=== PATIENT | male | born 1975 | race Caucasian/White ===

== ENCOUNTER 2017-04-10 05:01 | Inpatient (IN) ==
[2017-04-08 15:21] LABS: Basophils # (Auto) 0.1 K/mcL (0.0-0.3); Basophils % (Auto) 1.4 % (0.0-2.0); Eosinophils # (Auto) 0.2 K/mcL (0.0-0.7); Eosinophils % (Auto) 2.2 % (0.0-7.0); Granulocytes % (Auto) 58.4 % (38.0-78.0); Lymphocytes # (Auto) 3.1 K/mcL (1.5-4.8); Lymphocytes % (Auto) 31.7 % (15.5-49.0); Mean Cell Volume 85.9 fL (80.0-100.0); Mean Corpuscular HGB Conc 33.5 g/dL (31.0-36.0); Mean Corpuscular Hemoglobin 28.8 pg (26.0-34.0); Monocytes # (Auto) 0.6 K/mcL (0.1-0.9); Monocytes % (Auto) 6.3 % (1.0-12.0); Platelet Count 510 K/mcL (140-440); RBC 4.96 M/mcL (4.50-5.90); Red Cell Distribution Width 12.6 % (11.5-14.5)
[2017-04-08 15:34] LABS: Blood Urea Nitrogen 13 mg/dl (6-20)
[2017-04-08 15:43] LABS: Appearance,Urine CLEAR; Bilirubin,Urine NEG (NEG); Color,Urine STRAW; Glucose,Urine (UA) NEGATIVE (NEG); Leukocyte Esterase,Urine NEG /uL (NEG); Nitrate,Urine NEG (NEG); Protein,Urine NEG (NEG); Specific Gravity,Urine 1.006 (1.000-1.035); Urine Blood NEG mg/dL (<0.03); Urobilinogen,Urine NEG (NEG)
[~2017-04-10 05:01] MED LIST: CELECOXIB 200 MG CAPSULE PO SCH; PREGABALIN 75 MG CAPSULE PO SCH; ceFAZolin 1 GM VIAL IV SCH; oxyCODONE 10 MG TAB.ER.12H PO SCH
[2017-04-10] MEDS ORDERED: LIDOCAINE HCL/PF 100 MG/5 ML SYRINGE IV ONE (07:40)
[2017-04-10] MEDS ORDERED: fentaNYL 100 MCG/2 ML VIAL IV ONE (07:40)
[2017-04-10] MEDS ORDERED: GLYCOPYRROLATE 0.2 MG/ML VIAL IV ONE (07:40)
[2017-04-10] MEDS ORDERED: MIDAZOLAM 5 MG/5 ML VIAL IV ONE (07:40)
[2017-04-10] MEDS ORDERED: KETAMINE 100 MG/ML ML IV ONE (07:40)
[2017-04-10] MEDS ORDERED: PROPOFOL 200 MG/20 ML VIAL IV ONE (07:40)
[2017-04-10] MEDS ORDERED: ONDANSETRON 4 MG/2 ML VIAL IV ONE (07:40)
[2017-04-10] MEDS ORDERED: TRANEXAMIC ACID 1,000 MG/10 ML VIAL IV ONE ×2 (07:40→09:15)
[2017-04-10] MEDS ORDERED: HEPARIN 10,000 UNIT/ML VIAL IR ONE (08:25)
[2017-04-10] MEDS ORDERED: HEPARIN 20,000 UNIT/ML VIAL IR ONE (08:25)
[2017-04-10] MEDS ORDERED: KETOROLAC 30 MG/ML VIAL IV PRN (09:03)
[2017-04-10] MEDS ORDERED: BENZOCAINE/MENTHOL 1 LOZENGE PO PRN ×2 (09:03→09:15)
[2017-04-10] MEDS ORDERED: MEPERIDINE 25 MG/ML SYRINGE IV PRN (09:03)
[2017-04-10] MEDS ORDERED: IPRATROPIUM/ALBUTEROL 3 ML AMPUL.NEB NEB PRN (09:03)
[2017-04-10] MEDS ORDERED: METOPROLOL TARTRATE 5 MG/5 ML VIAL IV PRN (09:03)
[2017-04-10] MEDS ORDERED: diphenhydrAMINE 50 MG/ML VIAL IV PRN (09:03)
[2017-04-10] MEDS ORDERED: METHOCARBAMOL 1,000 MG/10 ML VIAL IV PRN (09:03)
--- NOTE | 2017-04-10 09:13 | Brief Operative Note ---
Date of procedure: 04/10/17 Pre-op diagnosis: Left hip avascular necrosis Post-op diagnosis: same Procedure: Left total hip arthroplasty anterior approach Grafts/Implants: Yes (Depuy Trilock size 7 HO, +5 36 delta head, 54 cup, neutral ceramic liner) Anesthesia: spinal, GLMA Findings: severe avn Complications: none Surgeon: Hieu Kruse Manager Icu: Clyde English Estimated blood loss (cc): 150 Specimens Removed/Pathology: none sent Condition: stable Disposition: PACU
[2017-04-10] MEDS ORDERED: BISACODYL 10 MG SUPP.RECT PR PRN (09:15)
[2017-04-10] MEDS ORDERED: FLEETS ADULT ENEMA PR PRN (09:15)
[2017-04-10] MEDS ORDERED: LACTATED RINGERS 1,000 ML IV SCH (09:15)
[2017-04-10] MEDS ORDERED: MAGNESIUM HYDROXIDE 30 ML ORAL.SUSP PO PRN (09:15)
[2017-04-10] MEDS ORDERED: POLYETHYLENE GLYCOL 3350 17 GM PACKET PO PRN (09:15)
[2017-04-10] MEDS ORDERED: ONDANSETRON 4 MG/2 ML VIAL IV PRN (09:15)
[2017-04-10] MEDS: fentaNYL 100 MCG/2 ML VIAL IV PRN ×7 (09:30→10:12)
[2017-04-10] MEDS: HYDROmorphone 2 MG/ML SYRINGE IV PRN ×3 (09:35→10:03)
[2017-04-10] MEDS ORDERED: ACETAMINOPHEN 325 MG TABLET PO SCH (10:00)
--- NOTE | 2017-04-10 10:05 | XRay Report ---
CLINICAL INFORMATION: Postop total hip prostheses COMPARISON: Preoperative films from 03/17/2017 FINDINGS: Left total hip prostheses is anatomically aligned. There is no osseous abnormality. Both SI and right joints are normal with alignment without arthritic change. Soft tissue swelling seen in the surgical site as expected IMPRESSION: Negative Interpreted and Authenticated by: Benedict Reynoso 04/10/17
--- NOTE | 2017-04-10 10:09 | Operative Note ---
DATE OF OPERATION: 04/10/2017 PREOPERATIVE DIAGNOSIS: Left hip severe avascular necrosis. POSTOPERATIVE DIAGNOSIS: Left hip severe avascular necrosis. PROCEDURE PERFORMED: Left total hip arthroplasty through direct anterior approach placing a DePuy Tri-Lock size 7 high offset femoral stem, a +5, 36 mm delta ceramic head ball, a 54 no-hole [place] cup with a delta ceramic liner. SURGEON: Hieu Kruse MD. YARD DEMURRAGE CLERK: Darrius English PA-C. ANESTHESIA: Spinal plus general. DRAINS: None. SPECIMENS: None. COMPLICATIONS: None. BLOOD LOSS: 150 mL POSTOPERATIVE CONDITION: Stable. INDICATIONS FOR SURGERY: This is a 41-year-old male who has history of heavy alcohol use who has had worsening left hip pain. The radiographs showed severe femoral head avascular necrosis with collapse. FINDINGS AT SURGERY: As above. Post implantation showed good overall component position and jew of leg length and offset. PROCEDURE IN DETAIL: The patient had been seen preoperatively. Informed consent had been obtained after discussion of risks and benefits of surgery. Risks including, but not limited to, bleeding, possibly requiring transfusion; infection, possibly requiring implant removal and prolonged IV antibiotics; injury to nerves, blood vessels, and other surrounding structures, at particular risk the lateral femoral and cutaneous nerve possibly resulting lateral thigh numbness, anesthetic risks, DVT and pulmonary embolus risks, leg length discrepancy, dislocation; fracture; need for revision surgery given his young age. He understood these risks and wished to proceed. Correct operative site was marked and then patient received spinal anesthesia. He was taken to the operating room and LMA general given. He was carefully positioned on the fracture table and the left hip and groin were carefully prepped and draped in normal sterile fashion and a time-out was performed verifying patient name, operative site, and plan. Standard anterior approach incision was made with a 10 blade scalpel through skin and subcutaneous tissue. Hemostasis was obtained with Bovie cautery. We bluntly dissected down onto the tensor fascia and then undermined this circumferentially. IrriSept was irrigated and then a ring retractor was placed. Tensor fascia was incised in line with the muscle fibers and then careful blunt dissection taken medial to the muscle belly. Blunt cobra retractors were placed on the superior and inferior neck and then circumflex vessels were coagulated and cut and anterior capsulectomy performed. Capsule releases were taken down to the lesser and out towards the greater trochanter and then a corkscrew was placed in the femoral head. Osteotome was used under fluoro to identify our neck cut trajectory and then oscillating tip saw was used to make our osteotomy. We levered the head out. It did fragment upon removal due to the avascular necrosis. Once we had this completely excised the acetabulum was exposed. The labrum was excised circumferentially as well as soft tissue removed from the floor. A reamer was used to directly medialize and then we increased reamer size and angle until we got good rim ream with a 53 reamer. We trialed the 53 with excellent press-fit, so a 54 no-hole H[place]on cup was opened. IrriSept was irrigated into the acetabulum and after a minute pulse was performed. We then impacted the cup at approximately 40 degrees of inclination and 25 degrees of anteversion. Once it was fully seated, we did have excellent press-fit. A center hole cover was placed and then delta ceramic liner was carefully aligned and then impacted. We carefully verified that this was flush circumferentially and then traction was removed from the leg. It was externally rotated and capsule released taken around the medial neck and inferior. We then extended the leg and adducted to expose the proximal femur. We went ahead and released capsule out towards the greater trochanter. Box osteotome and then awl was used to identify canal trajectory. A rongeur and rasp were lateralized and we broached up to a size 6. This went below our neck cut a little bit, so we went ahead and calcar planed down. A standard offset neck with a +1.5 head ball was carefully positioned. The hip was reduced. AP pelvis was taken to verify neutral rotation and AP of the nonoperative and operative hip were taken. Our offset appeared to be under so we went ahead and redislocated. I was able to impact the stem down even further, so I did go up to a size 7. This seated right at our neck cut so we opened a 7 high offset Tri-Lock stem. We irrigated the femoral canal with IrriSept and after copiously pulse lavaged and then impacted the stem. This stem seated about a millimeter below our neck cut, so I went ahead and opened a +5 head ball. The stem was carefully cleaned and dried and then head ball briskly impacted with multiple blows with the mallet. We then reduced the hip without excessive tension. AP x-ray was taken and overlaid again with the nonoperative hip and leg length and offset were almost identical. These images were saved and printed. We then irrigated with IrriSept, after a minute pulse lavaged copiously with saline and then closed the tensor fascia with a running #1 Vicryl stitches, final IrriSept irrigation and then final pulse lavage and then 2-0 Monocryl, sukhdeep for skin. Xeroform and sterile dressing were applied. The patient was then awakened, extubated, and transferred to recovery in stable condition. INGRID:gordy Job ID: [id number] Doc ID: [id number] Hieu Kruse MD
[2017-04-10] MEDS: KETOROLAC 30 MG/ML VIAL IV PRN ×2 (11:01→20:40)
[2017-04-10] MEDS ORDERED: NICOTINE 21 MG PATCH TOPICAL ONE (11:30)
[2017-04-10] MEDS: NICOTINE 21 MG PATCH TOPICAL ONE ×2 (11:52→19:54)
[2017-04-10] MEDS: 0.9 % SODIUM CHLORIDE 10 ML SYRINGE IV SCH ×2 (12:29→22:16)
[2017-04-10] MEDS ORDERED: LORazepam 2 MG/ML VIAL IV PRN (14:14)
[2017-04-10] MEDS ORDERED: HYDROmorphone 2 MG/ML SYRINGE IV PRN (14:15)
--- NOTE | 2017-04-10 14:44 | Discharge Summary ---
Providers - Providers Patient information: Note initiated : 04/10/17 at 2:41 pm Service Date, if different from initiated Date: [] Patient: Lobo Khalil 41 y/o M admitted on 04/10/17 for Left Total Hip Arthroplasty Anterior. Chief Complaint: [] Discharge date: 04/11/17 Hospitalization Hospital course: Pt was admitted for a MANDIE, he underwent the procedure on the day of admission. He spent one night on the floor prior to discharge for IV pain meds, IV abx and PT. He was discharged with appropriate pain meds, and aspirin for DVT prophylaxis. He will f/u at [facility] in 10-14 days. Discharge diagnosis: L Hip osteoarthrosis Exam - Exam Clean and dry: Yes Weight bearing status: as tolerated Ortho Discharge - MANDIE - Patient Instructions Diet: Regular Diet Activity: activity as tolerated Total Hip Protocol: Follow activity instructions as provided by Physical Therapy. Dressing Care: May shower in 2 days - Follow Up Plan Disposition: Home, Self-Care Prognosis: Good Rehab Potential: Good Overall status at discharge: patient is progressing back to baseline - Orders For Discharge Prescriptions: Aspirin [Ecotrin] 325 mg PO BID #30 tab.ec HYDROcodone/APAP 10/325MG [Laura 10/325Mg] 1 - 2 tab PO Q4HP PRN #100 tab PRN Reason: Pain Pending Studies Resuscitation Status Full Code Diet Regular Diet Start SatApr 10 Lunch Cefazolin Sodium (Ancef) 1 gm IV PREOP TRISTAN Stop: 04/10/17 17:00 Last Admin: 04/10/17 07:36 Dose: 1 gm Celecoxib (Celebrex) 200 mg PO PREOP TRISTAN Stop: 04/10/17 17:00 Last Admin: 04/10/17 05:40 Dose: 200 mg Ketorolac Tromethamine (Toradol) 30 mg IV Q6HP PRN PRN Reason: Pain Stop: 04/12/17 09:18 Last Admin: 04/10/17 11:01 Dose: 30 mg Oxycodone HCl (Oxycontin) 10 mg PO PREOP TRISTAN Stop: 04/10/17 17:00 Last Admin: 04/10/17 05:40 Dose: 10 mg Pregabalin (Lyrica) 75 mg PO PREOP TRISTAN Stop: 04/10/17 17:00 Last Admin: 04/10/17 05:40 Dose: 75 mg Sodium Chloride (Saline Flush) 10 ml IV Q8 TRISTAN Last Admin: 04/10/17 12:29 Dose: Not Given
--- NOTE | 2017-04-10 15:37 | XRay Report ---
CLINICAL INFORMATION: Left total hip arthroplasty anterior approach COMPARISON: None. FINDINGS: Multiple digital images are submitted from the operating room. Final images show left total hip prostheses is anatomically aligned. No osseous abnormalities. IMPRESSION: Negative Interpreted and Authenticated by: Benedict Reynoso 04/10/17
[2017-04-10] MEDS ORDERED: ACETAMINOPHEN 500 MG TABLET PO SCH (16:00)
[2017-04-10] MEDS: HYDROcodone/APAP 10/325MG TABLET PO PRN ×2 (16:10→20:42)
[2017-04-10] MEDS: 0.9 % SODIUM CHLORIDE 1,000 ML IV SCH ×2 (16:33→18:26)
[2017-04-10] MEDS: ceFAZolin 1 GM VIAL IV SCH ×2 (16:33→23:28)
[2017-04-10] MEDS: DOCUSATE SODIUM 100 MG CAPSULE PO SCH (20:42)
[2017-04-10] MEDS: ASPIRIN 325 MG ENTERIC COATED TABLET PO SCH (20:42)
[2017-04-10] MEDS ORDERED: SENNOSIDES 1 TABLET PO SCH (21:00)
[2017-04-11] MEDS: HYDROcodone/APAP 10/325MG TABLET PO PRN ×3 (00:54→08:32)
[2017-04-11] MEDS: 0.9 % SODIUM CHLORIDE 1,000 ML IV SCH ×2 (00:55→09:26)
[2017-04-11] MEDS: 0.9 % SODIUM CHLORIDE 10 ML SYRINGE IV SCH (05:01)
--- NOTE | 2017-04-11 07:41 | Orthopedic Progress Note ---
Orthopedics - Auxillary Note - Subjective Patient Information: Note initiated : 04/11/17 at 7:40 am Service Date, if different from initiated Date: [] Patient: Lobo Khalil 41 y/o M admitted on 04/10/17 for Left Total Hip Arthroplasty Anterior. Chief Complaint: mild numbness anterior thigh. bandages c/d/i nvi-distal Vital Signs Temp Pulse Pulse Resp BP BP Pulse Ox 04/11/17 07:35 64 98 04/11/17 07:19 97.2 F 16 116/76 97 04/11/17 06:56 16 97 04/11/17 03:34 97.3 F 85 16 116/75 97 04/11/17 00:00 97.9 F 71 16 98/61 98 04/10/17 18:59 97.8 F 66 18 116/79 98 04/10/17 16:00 97.7 F 16 108/69 99 04/10/17 13:05 114/78 99 04/10/17 12:05 117/82 100 04/10/17 11:35 98/65 100 04/10/17 11:05 121/79 99 04/10/17 10:50 113/79 99 04/10/17 10:35 111/73 98 04/10/17 10:20 104/67 98 04/10/17 10:15 97.4 F 56 L 14 108/78 95 04/10/17 10:05 56 L 14 119/71 95 04/10/17 09:49 61 14 130/94 93 04/10/17 09:35 62 14 106/70 100 04/10/17 09:30 97.5 F 78 18 102/63 96 Intake and Output 04/10/17 04/11/17 04/11/17 21:59 05:59 13:59 Intake Total 1350 / 1350 2200 / 2200 800 / 800 Output Total 1050 / 1050 1750 / 1750 125 / 125 Balance 300 / 300 450 / 450 675 / 675 Intake: IV 1000 / 1000 Sodium Chloride 0.9% 1,000 ml @ 1000 / 1000 125 mls/hr IV .Q8H [facility] Rx#: [id number] Oral 1350 / 1350 1200 / 1200 800 / 800 Output: Void Amount 1050 / 1050 1750 / 1750 125 / 125 Straight 600 / 600 Other: Weight 149 lb Laboratory Results - last 24 hr 04/11/17 06:05 Hgb 11.1 L Hct 32.6 L s/p L total hip arthroplasty-stable mobilize with PT discharge to home today
[2017-04-11] MEDS ORDERED: CARVEDILOL 12.5 MG TABLET PO SCH (08:00)
[2017-04-11] MEDS: ASPIRIN 325 MG ENTERIC COATED TABLET PO SCH (08:32)
[2017-04-11] MEDS: DOCUSATE SODIUM 100 MG CAPSULE PO SCH (08:32)
[2017-04-11] MEDS ORDERED: LOSARTAN 50 MG TABLET PO SCH (09:00)
[2017-04-11] MEDS ORDERED: amLODIPine 10 MG TABLET PO SCH (09:00)
[2017-04-11] MEDS ORDERED: NICOTINE 21 MG PATCH TOPICAL SCH (10:00)
== END 2017-04-11 10:40 | disposition home or self-care (01) | DRG 470 ==
LOC: MEDSUR 05:01
PROVIDERS: ADMIT Orthopaedic Surgery; ATTEND Orthopaedic Surgery